=== PATIENT | male | born 1975 | race Caucasian/White ===

== ENCOUNTER 2019-06-12 19:04 | Emergency (ER) | payer OTHER ==
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
--- NOTE | 2019-06-12 20:21 | CR ---
INDICATION: Tibia injury TECHNIQUE: Tibia-fibula radiograph 4 views left COMPARISON: None FINDINGS: Bone: No acute fractures or aggressive bone lesions are identified. Metallic compression plate fixation of the distal fibula is noted. There are also 2 metallic suture bone seen along the distal medial tibia with ghost tracks along the syndesmotic joint. 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 No significant joint effusion is seen. Soft tissue: Unremarkable. No radiopaque foreign bodies are seen. IMPRESSION: 1. No acute osseous injuries or abnormalities are noted. Dictated by Paulo Broderick MD @ 06/12/2019 8:20:04 PM Dictated by: Paulo Broderick MD @ 06/12/2019 20:20:18 (Electronically Signed)
== END 2019-06-12 20:48 | disposition home or self-care (01) ==
LOC: MW.ED 19:04
DX: M25.562 Pain in left knee (principal); Z86.14 Personal history of Methicillin resistant Staphylococcus aureus infection
CPT/HCPCS: 73590-26-LT; 73590-LT; 99283; 99283-25